=== PATIENT | male | born 1950 | race Caucasian/White ===

== ENCOUNTER → 2024-10-08 13:24 | Outpatient (CLI) | payer OTHER, SELFPAY ==
--- NOTE | 2024-10-08 13:28 | DI.ECHO.S_ITS ---
[facility] +---------+ [facility] : : [address] : : [place] : : [id number] : : Phone: [phone] Echocardiogram Report + + :Name: FELICIANO ALCANTAR Study Date: 10/08/2024 Height: 69 in : :[facility] ReadingLocation: Weight: 140 lb : : Gender: Male BSA: 1.8 m2 : :: 1950 Age: 74 yrs BP: 105/64 mmHg: :Reason For Study: CAD : :Ordering Physician: OMAR, : :DYLAN Performed By: Richard Wilkinson : :Referring: DYLAN NELSON : + + Interpretation Summary The left ventricle is normal in size. Left ventricular systolic function is severely reduced. The ejection fraction is estimated to be 25-30%. The right ventricle is not well visualized. The right ventricle is grossly normal size. Right ventricular systolic function is mildly reduced. The right ventricular systolic pressure is estimated to be at least 26 mmHg based on an estimated right atrial pressure of 3 mm Hg. The left atrium is severely dilated. The right atrium is moderately dilated. There is mild to moderate mitral regurgitation. The aortic root is normal size. Procedure: A two-dimensional transthoracic echocardiogram with color flow and Doppler was performed. The study quality was technically good. There is no prior echocardiogram noted for this patient. The patient was in atrial fibrillation with heart rates between 96-131 bpm during the exam. Left Ventricle: The left ventricle is normal in size. There is normal left ventricular wall thickness. There is no ventricular septal defect visualized. Left ventricular systolic function is severely reduced. The ejection fraction is estimated to be 25-30%. There is moderate to severe global hypokinesis of the left ventricle. Diastolic function could not be accurately assessed due to atrial fibrillation. Right Ventricle: The right ventricle is not well visualized. The right ventricle is grossly normal size. Right ventricular systolic function is mildly reduced. Atria: The left atrium is severely dilated. The right atrium is moderately dilated. There is no Doppler evidence for an atrial septal defect. Mitral Valve: There is mild mitral annular calcification. The mitral valve leaflets appear mildly thickened, but open well. There is mild to moderate mitral regurgitation. Aortic Valve: The aortic valve is trileaflet. The aortic valve is mildly calcified. The aortic valve opens well. No aortic regurgitation is present. Tricuspid Valve: The tricuspid valve is normal in structure and function. There is trace tricuspid regurgitation. The right ventricular systolic pressure is estimated to be at least 26 mmHg based on an estimated right atrial pressure of 3 mm Hg. Pulmonic Valve: The pulmonic valve is normal in structure and function. There is trace pulmonic regurgitation. Great Vessels: The aortic root is normal size. The ascending aorta could not be visualized. The pulmonary artery is normal size. The IVC is of normal diameter and collapses greater than 50% with a sniff. This suggests a low right atrial pressure of 3 mm Hg. Pericardium/ Pleura There is no pericardial effusion. There is no pleural effusion. MMode/2D Measurements & Calculations LVIDd: 5.3 cm LVOT diam: 1.9 cm LVIDs: 4.6 cm Ao root diam: 3.4 cm FS: 12.7 % EPSS: 1.0 cm IVSd: 0.77 cm LVPWd: 0.81 cm LV hoskins. diameter/BSA (cm/m^2): 3.0 LV sys. diameter/BSA (cm/m^2): 2.6 LA A2 area: 29.0 cm2 RA long axis: 5.1 cm LA A4 area: 22.4 cm2 RA area: 21.7 cm2 LA length (vol): 6.2 cm RA vol: 78.3 ml LA vol: 89.1 ml RA : 44.1 ml/m2 LA vol index: 50.2 ml/m2 IVC diam: 1.4 cm TAPSE: 1.2 cm Doppler Measurements & Calculations Ao V2 max: 104.7 cm/sec LVOT Max Tex: 57.4 cm/sec Ao V2 mean: 70.3 cm/sec LV V1 max P.3 mmHg Ao max P.4 mmHg LV V1 VTI: 11.6 cm Ao mean P.3 mmHg KOTA(I,D): 1.7 cm2 Ao V2 VTI: 19.3 cm KOTA(V,D): 1.6 cm2 sev ratio: 0.60 KOTA indexed to BSA (cm^2/m^2): 0.98 MV E max tex: 69.0 cm/sec TR max tex: 240.5 cm/sec MV A max tex: 19.3 cm/sec TR max P.1 mmHg MV E/A: 3.6 PA V2 max: 94.7 cm/sec Med Peak E' Tex: 6.0 cm/sec PA V2 mean: 59.8 cm/sec E/E' med: 11.6 PA mean P.6 mmHg Lat Peak E' Tex: 8.2 cm/sec PA pr(Accel): 44.7 mmHg E/E' lat: 8.5 E/e' average: 10.0 MV dec time: 0.16 sec MR ERO: 0.11 cm2 MR PISA: 1.9 cm2 SV(LVOT): 33.6 ml MR flow rate: 57.4 cm3/sec MR PISA radius: 0.55 cm Reading Physician:03:21 PM
== END ==
PROVIDERS: Referring Provider Chiropractor; Visit Provider Chiropractor
DX: I34.81 Nonrheumatic mitral (valve) annulus calcification (principal); I34.0 Nonrheumatic mitral (valve) insufficiency; I25.10 Atherosclerotic heart disease of native coronary artery without angina pectoris
CPT/HCPCS: 93306